=== PATIENT | male | born 1975 | race American Indian/Alaskan Native ===

== ENCOUNTER 2017-11-12 00:49 | Emergency (ER) | payer OTHER ==
[2017-11-12 01:03] VITALS: BP 125/80
--- NOTE | 2017-11-12 01:22 | XRay Report ---
FINAL REPORT EXAM: XR ANKLE 2V RT HISTORY: Right ankle pain COMPARISON: None available. FINDINGS: Two views of right ankle obtained. Ankle mortise is preserved. No acute fracture dislocation. Mild soft tissue swelling. Mild hypertrophic spurring along the subtalar joint space. IMPRESSION: No acute bony abnormality. Mild degenerative changes.
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
== END 2017-11-12 02:09 | disposition home or self-care (01) ==
LOC: ED 00:49
DX: M25.571 Pain in right ankle and joints of right foot (principal); G89.29 Other chronic pain; M79.674 Pain in right toe(s); F17.200 Nicotine dependence, unspecified, uncomplicated
CPT/HCPCS: 99283

== ENCOUNTER 2017-12-01 12:45 | Emergency (ER) | payer OTHER ==
[2017-12-01] MEDS ORDERED: MOTRIN PO ONE ×2 (15:15→15:39)
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
[2017-12-01 18:08] VITALS: BP 128/32
== END 2017-12-01 18:07 | disposition home or self-care (01) ==
LOC: ED 12:45
DX: S13.4XXA Sprain of ligaments of cervical spine, initial encounter (principal); V49.49XA Driver injured in collision with other motor vehicles in traffic accident, initial encounter; Y93.89 Activity, other specified; Y92.89 Other specified places as the place of occurrence of the external cause; Y99.8 Other external cause status
CPT/HCPCS: 71111; 72040; 99283

== ENCOUNTER 2017-12-18 22:09 | Emergency (ER) | payer OTHER ==
--- NOTE | 2017-12-18 23:38 | XRay Report ---
FINAL REPORT PROCEDURE: XR SPINE CERVICAL 2-3V TECHNIQUE: Cervical spine radiographs, AP, lateral, and open-mouth odontoid views. CPT 71899 HISTORY: neck pain COMPARISON: No prior studies are available for comparison. FINDINGS: Prevertebral soft tissues: Normal . Alignment: Normal . Vertebral body heights/Disk spaces: Normal . Fracture(s): None . Facets: Normal . Bone mineralization: Normal . IMPRESSION: Normal Examination
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
[2017-12-19] MEDS ORDERED: MOTRIN PO ONE (05:26)
[2017-12-19 06:53] VITALS: BP 128/76
== END 2017-12-19 07:21 | disposition home or self-care (01) ==
LOC: ED 22:09
DX: S16.1XXA Strain of muscle, fascia and tendon at neck level, initial encounter (principal); V89.2XXA Person injured in unspecified motor-vehicle accident, traffic, initial encounter; Y93.89 Activity, other specified; Y92.89 Other specified places as the place of occurrence of the external cause; Y99.8 Other external cause status
CPT/HCPCS: 72040; 99283

== ENCOUNTER 2019-01-26 17:54 | Emergency (ER) | payer OTHER ==
[2019-01-26] MEDS ORDERED: NACL 0.9% 1000 ML 1,000 ML IV ONE (18:04)
--- NOTE | 2019-01-26 18:06 | Emergency Department Report ---
Blank Doc - Documentation Documentation: C/O nauseated abd pain time 2 week. Drinks hard liquors, Fever. Have not check temp. This initial assessment diagnostic orders/clinical plan/treatment (s) is/Are subject change based on patient's health status, clinical progression and re- assessment by fellow clinical providers in the ED. Further treatment and work-up at subsequent clinical providers discretion. Patient/guardians urged not to elope from s their condition may be serious if not clinically assessed and manag ed. Inital order include:
[2019-01-26 18:08] VITALS: BP 140/90
[2019-01-26 19:00] LABS: Bilirubin,Urine NEG (Negative); Blood,Urine MOD (Negative); Color,Urine Amber (Yellow); Mucus,Urine 3+ /HPF
--- NOTE | 2019-01-26 22:31 | Emergency Department Report ---
ED N/V/D HPI - General Chief complaint: Nausea/Vomiting/Diarrhea Stated complaint: STOMACH VIRUS Time Seen by Provider: 01/26/19 18:02 Source: patient Mode of arrival: Ambulatory Limitations: No Limitations - History of Present Illness Initial comments: pt is a 43 y/o aam with hx GERD who presents for abd pain n/v/d x 1 month intermittently pt states he continues use ETOH and is 15 pack yr smoker, pt dernies fever or chills , pt states symptoms exacerbated by po intake symptom relieved by npo , there is associated heart burn and belching MD complaint: nausea, vomiting, diarrhea, abdominal pain Onset/Timin -: month(s) Description of Vomiting: food contents Description of Diarrhea: water Associated Abdominal Pain: Yes (01/09) Location: LUQ Radiation: other (epigastric ) Severity: moderate Pain Scale: 4 Quality: aching, other (burning ) Consistency: intermittent Improves with: rest Worsens with: eating Associated Symptoms: denies other symptoms - Related Data Previous Rx's Medication Instructions Recorded Last Taken Type Naproxen 500 mg PO BID PRN #30 tablet 11/12/17 Unknown Rx Cyclobenzaprine [Flexeril] 10 mg PO QHS PRN #7 tablet 12/01/17 Unknown Rx Cyclobenzaprine [Flexeril 10 MG 10 mg PO Q8H PRN 4 Days #12 tablet 12/19/17 Unknown Rx TAB] Ibuprofen [Motrin 600 MG tab] 600 mg PO Q8H PRN 5 Days #15 tablet 12/19/17 Unknown Rx Chlorhexidine Gluconate [Hibiclens] 10 ml TP BID #240 liquid 09/21/18 Unknown Rx cephALEXin [Keflex] 500 mg PO Q6HR #40 capsule 09/21/18 Unknown Rx Famotidine [Pepcid] 20 mg PO BID #60 tablet 01/26/19 Unknown Rx Naproxen 500 mg PO BID PRN #30 tablet 01/26/19 Unknown Rx Ondansetron [Zofran Odt] 4 mg PO Q8HR PRN #12 tab.rapdis 01/26/19 Unknown Rx Allergies Allergy/AdvReac Type Severity Reaction Status Date / Time egg Allergy Itching Verified 01/26/19 17:55 ED Review of Systems ROS: Stated complaint: STOMACH VIRUS Other details as noted in HPI Constitutional: denies: chills, fever Eyes: denies: eye pain, eye discharge, vision change ENT: denies: ear pain, throat pain Respiratory: denies: cough, shortness of breath, wheezing Cardiovascular: denies: chest pain, palpitations Endocrine: no symptoms reported Gastrointestinal: abdominal pain, nausea, vomiting, diarrhea. denies: constipation, hematemesis, melena, hematochezia Genitourinary: denies: urgency, dysuria Musculoskeletal: denies: back pain, joint swelling, arthralgia Skin: denies: rash, lesions Neurological: denies: headache, weakness, paresthesias Psychiatric: denies: anxiety, depression Hematological/Lymphatic: denies: easy bleeding, easy bruising ED Past Medical Hx - Past Medical History Hx Psychiatric Treatment: Yes (alcohol abuse) - Surgical History Past Surgical History?: No - Social History Smoking Status: Current Every Day Smoker Substance Use Type: Alcohol - Medications Home Medications: Home Medications Medication Instructions Recorded Confirmed Last Taken Type Naproxen 500 mg PO BID PRN #30 tablet 11/12/17 Unknown Rx Cyclobenzaprine [Flexeril] 10 mg PO QHS PRN #7 tablet 12/01/17 Unknown Rx Cyclobenzaprine [Flexeril 10 MG 10 mg PO Q8H PRN 4 Days #12 tablet 12/19/17 Unknown Rx TAB] Ibuprofen [Motrin 600 MG tab] 600 mg PO Q8H PRN 5 Days #15 tablet 12/19/17 Unknown Rx Chlorhexidine Gluconate [Hibiclens] 10 ml TP BID #240 liquid 09/21/18 Unknown Rx cephALEXin [Keflex] 500 mg PO Q6HR #40 capsule 09/21/18 Unknown Rx Famotidine [Pepcid] 20 mg PO BID #60 tablet 01/26/19 Unknown Rx Naproxen 500 mg PO BID PRN #30 tablet 01/26/19 Unknown Rx Ondansetron [Zofran Odt] 4 mg PO Q8HR PRN #12 tab.rapdis 01/26/19 Unknown Rx ED Physical Exam - General Limitations: No Limitations General appearance: alert, in no apparent distress - Head Head exam: Present: atraumatic, normocephalic - Eye Eye exam: Present: normal appearance, PERRL, EOMI Pupils: Present: normal accommodation - ENT ENT exam: Present: mucous membranes moist, TM's normal bilaterally, normal external ear exam - Expanded ENT Exam Expanded Throat exam: Positive: tonsillar erythema, other (uvula midline no stridor no exudate no lesions). Negative: tonsillomegaly, tonsillar exudate, R peritonsillar mass, L peritonsillar mass - Neck Neck exam: Present: normal inspection, full ROM. Absent: tenderness, meningismus, lymphadenopathy, thyromegaly - Respiratory Respiratory exam: Present: normal lung sounds bilaterally. Absent: respiratory distress, wheezes, stridor, chest wall tenderness - Cardiovascular Cardiovascular Exam: Present: regular rate, normal rhythm, normal heart sounds. Absent: systolic murmur, diastolic murmur, rubs, gallop - GI/Abdominal GI/Abdominal exam: Present: soft, tenderness (RUQ, LLQ ), normal bowel sounds. Absent: distended, guarding, rebound, rigid, bruit, hernia - Rectal Rectal exam: Present: deferred - Extremities Exam Extremities exam: Present: normal inspection - Back Exam Back exam: Present: normal inspection, full ROM. Absent: tenderness, CVA tender ness (R), CVA tenderness (L), muscle spasm, paraspinal tenderness, vertebral tenderness, rash noted - Neurological Exam Neurological exam: Present: alert, oriented X3, CN II-XII intact, normal gait, reflexes normal - Psychiatric Psychiatric exam: Present: normal affect, normal mood - Skin Skin exam: Present: warm, dry, intact, normal color. Absent: rash ED Course Vital Signs 01/26/19 18:03 Temperature 98.6 F Pulse Rate 92 H Respiratory 18 Rate Blood Pressure 140/90 O2 Sat by Pulse 98 Oximetry ED Medical Decision Making - Medical Decision Making pt refuses labs, CT abd and pelvis pt signs out ama this time pt has been given the opportunity to ask and I have answered all questions to patients satisfaction pt is currenty a/o x 3 ambulatory with steady gait , pt with nad at this time signs out Against Medical Advise, I have counseled pt no risk of signing out AMA including and or worsening condition pt verbalized understanding of same. pt condition is undetermined at this time Critical care attestation.: If time is entered above; I have spent that time in minutes in the direct care of this critically ill patient, excluding procedure time. ED Disposition Clinical Impression: Nausea vomiting and diarrhea Disposition: DC-07 LEFT AGAINST MED ADVICE Is pt being admited?: No Does the pt Need Aspirin: No Condition: Stable Instructions: Acute Nausea and Vomiting (ED), Gastroesophageal Reflux Disease (ED), Diet for Ulcers and Gastritis (ED) Prescriptions: Famotidine [Pepcid] 20 mg PO BID #60 tablet Naproxen 500 mg PO BID PRN #30 tablet PRN Reason: pain Ondansetron [Zofran Odt] 4 mg PO Q8HR PRN #12 tab.rapdis PRN Reason: nausea and vomiting Referrals: [facility] [Provider Group] - 3-5 Days Forms: Work/School Release Form(ED), AMA Form Time of Disposition: 22:44
== END 2019-01-26 22:35 | disposition left against medical advice (07) ==
LOC: ED 17:54
DX: R10.12 Left upper quadrant pain (principal); R19.7 Diarrhea, unspecified; R11.2 Nausea with vomiting, unspecified; F17.200 Nicotine dependence, unspecified, uncomplicated; F10.129 Alcohol abuse with intoxication, unspecified; Z91.012 Allergy to eggs
CPT/HCPCS: 81001; 99283

== ENCOUNTER 2019-02-06 22:18 | Emergency (ER) | payer OTHER ==
[2019-02-06 22:24] VITALS: BP 121/70
--- NOTE | 2019-02-06 22:27 | Emergency Department Report ---
Chief Complaint: Extremity Injury, Upper Stated Complaint: LEFT HAND PAIN Time Seen by Provider: 02/06/19 22:21 - HPI History of Present Illness: left pinky finger and left thumb slammed in the door 3 hours [employer] no abrasions or lacerations has not moved the pinky since the incident MSE screening note: Focused history and physical exam performed. Due to findings the following was ordered: xr left pinky/thumb ED Disposition for MSE Condition: Stable
--- NOTE | 2019-02-06 23:45 | XRay Report ---
PROCEDURE: XR FINGER(S) 2+V LT TECHNIQUE: 5 radiographs of the first and second left digit obtained. HISTORY: left pinky/left thumb slammed into the door COMPARISONS: None FINDINGS: No acute fracture or dislocation. IMPRESSION: No acute fracture or dislocation.. This document is electronically signed by Arian Baac MD., February 06 2019 11:42:58 PM ET
[2019-02-07] MEDS ORDERED: ULTRAM PO ONE (00:01)
--- NOTE | 2019-02-07 00:13 | Emergency Department Report ---
ED Upper Extremity Inj HPI - General Chief Complaint: Extremity Injury, Upper Stated Complaint: LEFT HAND PAIN Time Seen by Provider: 02/06/19 22:21 Source: patient Mode of arrival: Ambulatory Limitations: No Limitations - History of Present Illness Initial Comments: Patient is a 43-year-old -[place] male who presents for left hand pain states he slammed his left hand accidentally on a car door pain is 5/10 and aching throbbing pain is relieved by nothing pain is exacerbated by movement and palpation there is no swelling no deformity no bleeding no laceration noted Complaint: Injury to:: left Onset/Timin -: days(s) Other Extremity Injury: Fingers: Left, Hand: Left, Right, Wrist: Left, Right Other Injuries: none Place: home Severity scale (0 -10): 5 Improves With: none Worsens With: movement of extremity Context: direct blow Associated Symptoms: denies: weakness, numbness, neck pain, suspects foreign body, nausea/vomiting, heard/felt popping sensat - Related Data Previous Rx's Medication Instructions Recorded Last Taken Type Naproxen 500 mg PO BID PRN #30 tablet 11/12/17 Unknown Rx Cyclobenzaprine [Flexeril] 10 mg PO QHS PRN #7 tablet 12/01/17 Unknown Rx Cyclobenzaprine [Flexeril 10 MG 10 mg PO Q8H PRN 4 Days #12 tablet 12/19/17 Unknown Rx TAB] Ibuprofen [Motrin 600 MG tab] 600 mg PO Q8H PRN 5 Days #15 tablet 12/19/17 Unknown Rx Chlorhexidine Gluconate [Hibiclens] 10 ml TP BID #240 liquid 09/21/18 Unknown Rx cephALEXin [Keflex] 500 mg PO Q6HR #40 capsule 09/21/18 Unknown Rx Famotidine [Pepcid] 20 mg PO BID #60 tablet 01/26/19 Unknown Rx Naproxen 500 mg PO BID PRN #30 tablet 01/26/19 Unknown Rx Ondansetron [Zofran Odt] 4 mg PO Q8HR PRN #12 tab.rapdis 01/26/19 Unknown Rx Naproxen 500 mg PO BID PRN #30 tablet 02/07/19 Unknown Rx Allergies Allergy/AdvReac Type Severity Reaction Status Date / Time egg Allergy Itching Verified 01/26/19 17:55 ED Review of Systems ROS: Stated complaint: LEFT HAND PAIN Other details as noted in HPI Constitutional: denies: chills, fever Eyes: denies: eye pain, eye discharge, vision change ENT: denies: ear pain, throat pain Respiratory: denies: cough, shortness of breath, wheezing Cardiovascular: denies: chest pain, palpitations Endocrine: no symptoms reported Gastrointestinal: denies: abdominal pain, nausea, diarrhea Genitourinary: denies: urgency, dysuria Musculoskeletal: myalgia, other (hand pain ) Skin: denies: rash, lesions Neurological: denies: headache, weakness, paresthesias Psychiatric: denies: anxiety, depression Hematological/Lymphatic: denies: easy bleeding, easy bruising ED Past Medical Hx - Past Medical History Hx Psychiatric Treatment: Yes (alcohol abuse) - Surgical History Past Surgical History?: No - Social History Smoking Status: Current Every Day Smoker Substance Use Type: None - Medications Home Medications: Home Medications Medication Instructions Recorded Confirmed Last Taken Type Naproxen 500 mg PO BID PRN #30 tablet 11/12/17 Unknown Rx Cyclobenzaprine [Flexeril] 10 mg PO QHS PRN #7 tablet 12/01/17 Unknown Rx Cyclobenzaprine [Flexeril 10 MG 10 mg PO Q8H PRN 4 Days #12 tablet 12/19/17 Unknown Rx TAB] Ibuprofen [Motrin 600 MG tab] 600 mg PO Q8H PRN 5 Days #15 tablet 12/19/17 Unknown Rx Chlorhexidine Gluconate [Hibiclens] 10 ml TP BID #240 liquid 09/21/18 Unknown Rx cephALEXin [Keflex] 500 mg PO Q6HR #40 capsule 09/21/18 Unknown Rx Famotidine [Pepcid] 20 mg PO BID #60 tablet 01/26/19 Unknown Rx Naproxen 500 mg PO BID PRN #30 tablet 01/26/19 Unknown Rx Ondansetron [Zofran Odt] 4 mg PO Q8HR PRN #12 tab.rapdis 01/26/19 Unknown Rx Naproxen 500 mg PO BID PRN #30 tablet 02/07/19 Unknown Rx ED Physical Exam - General Limitations: No Limitations General appearance: alert, in no apparent distress - Head Head exam: Present: atraumatic, normocephalic - Eye Eye exam: Present: normal appearance, PERRL Pupils: Present: normal accommodation - ENT ENT exam: Present: mucous membranes moist - Neck Neck exam: Present: normal inspection, full ROM. Absent: lymphadenopathy - Respiratory Respiratory exam: Present: normal lung sounds bilaterally, chest wall tenderness. Absent: respiratory distress, rhonchi - Cardiovascular Cardiovascular Exam: Present: regular rate, normal rhythm, normal heart sounds. Absent: systolic murmur, diastolic murmur, rubs, gallop - GI/Abdominal GI/Abdominal exam: Present: soft, normal bowel sounds. Absent: distended, tenderness, guarding, rebound, bruit, hernia - Rectal Rectal exam: Present: deferred - Extremities Exam Extremities exam: Present: normal inspection, tenderness, normal capillary refill. Absent: pedal edema, joint swelling, calf tenderness - Expanded Upper Extremity Exam Left Hand Wrist exam: Present: full ROM, tenderness (1st and 5th digit pain no swelling no deformity no laceration ). Absent: swelling, abrasion, laceration, ecchymosis, deformity, crepidus, dislocation, erythema, amputation, nail avulsion, subungual hematoma Neuro motor exam: Present: wrist extension intact, thumb opposition intact, thumb IP flexion intact, thumb adduction intact, fingers 2-5 abduction intact Neurosensory exam: Present: 2-point discrimination, radial nerve intact Vascular: Present: normal capillary refill, radial pulse, brachial pulse, ulnar pulse. Absent: vascular compromise, pulse deficit radial art, pulse deficit ulnar art, pulse deficit brachial art - Back Exam Back exam: Present: normal inspection, full ROM. Absent: tenderness, CVA tenderness (R), CVA tenderness (L), muscle spasm, paraspinal tenderness, vertebral tenderness, rash noted - Neurological Exam Neurological exam: Present: alert, CN II-XII intact, normal gait, reflexes normal. Absent: motor sensory deficit - Psychiatric Psychiatric exam: Present: normal affect, normal mood - Skin Skin exam: Present: warm, dry, intact, normal color. Absent: rash ED Course Vital Signs 02/06/19 22:22 Temperature 98.3 F Pulse Rate 69 Respiratory 18 Rate Blood Pressure 121/70 O2 Sat by Pulse 100 Oximetry ED Medical Decision Making - Radiology Data Radiology results: report reviewed, image reviewed normal hand xray no fracture no soft tissue abnormality - Medical Decision Making X-rays are normal fashion or soft tissue abnormalities were treated finger sprains with NSAIDs patient will follow up with PCP in 2-3 days patient a referral to [facility] patient verbalized agreement and understanding of the same pt for dc to home in stable condtion at this time Critical care attestation.: If time is entered above; I have spent that time in minutes in the direct care of this critically ill patient, excluding procedure time. ED Disposition Clinical Impression: Nausea vomiting and diarrhea Finger sprain Qualifiers: Encounter type: initial encounter Finger: little finger Sprain of finger site: interphalangeal joint Laterality: left Qualified Code(s): S63.637A - Sprain of interphalangeal joint of left little finger, initial encounter Disposition: DC-01 TO HOME OR SELFCARE Is pt being admited?: No Does the pt Need Aspirin: No Condition: Stable Instructions: Finger Sprain (ED) Prescriptions: Naproxen 500 mg PO BID PRN #30 tablet PRN Reason: pain Referrals: PRIMARY CARE, [Primary Care Provider] - 3-5 Days Forms: Work/School Release Form(ED) Time of Disposition: 00:20
== END 2019-02-07 00:56 | disposition home or self-care (01) ==
LOC: ED 22:18
DX: S63.637A Sprain of interphalangeal joint of left little finger, initial encounter (principal); R11.2 Nausea with vomiting, unspecified; R19.7 Diarrhea, unspecified; F17.200 Nicotine dependence, unspecified, uncomplicated; Z91.012 Allergy to eggs; W23.0XXA Caught, crushed, jammed, or pinched between moving objects, initial encounter; Y93.89 Activity, other specified; Y92.89 Other specified places as the place of occurrence of the external cause; Y99.8 Other external cause status

== ENCOUNTER 2019-08-29 06:00 | Emergency (ER) | payer SELFPAY ==
[2019-08-29] MEDS ORDERED: diphenhydrAMINE 25 MG CAP PO ONE (08:21)
--- NOTE | 2019-08-29 09:00 | Emergency Department Report ---
ED General Adult HPI - General Chief complaint: Medical Clearance Time Seen by Provider: 08/29/19 08:21 - History of Present Illness Initial comments: Patient is a 43-year-old male with no prior medical history presents to ED complaining of inability tosleep for the past couple of months. Patient states that he is taking [id number] at [facility] and Tylenol PM without any relief. Patient states she is also taking [id number]-[id number] no relief. Patient states he reports different hours of the day. Patient denies fevers/chills/nausea vomiting/abdominal pain/chest pain/dizziness/shortness of breath/loss of consciousness or any recent trauma or injuries. - Related Data Previous Rx's Medication Instructions Recorded Last Taken Type Naproxen 500 mg PO BID PRN #30 tablet 11/12/17 Unknown Rx Cyclobenzaprine [Flexeril] 10 mg PO QHS PRN #7 tablet 12/01/17 Unknown Rx Cyclobenzaprine [Flexeril 10 MG 10 mg PO Q8H PRN 4 Days #12 tablet 12/19/17 Unknown Rx TAB] Ibuprofen [Motrin 600 MG tab] 600 mg PO Q8H PRN 5 Days #15 tablet 12/19/17 Unknown Rx Chlorhexidine Gluconate [Hibiclens] 10 ml TP BID #240 liquid 09/21/18 Unknown Rx cephALEXin [Keflex] 500 mg PO Q6HR #40 capsule 09/21/18 Unknown Rx Famotidine [Pepcid] 20 mg PO BID #60 tablet 01/26/19 Unknown Rx Naproxen 500 mg PO BID PRN #30 tablet 01/26/19 Unknown Rx Ondansetron [Zofran Odt] 4 mg PO Q8HR PRN #12 tab.rapdis 01/26/19 Unknown Rx Naproxen 500 mg PO BID PRN #30 tablet 02/07/19 Unknown Rx diphenhydrAMINE [Benadryl CAP] 50 mg PO QHS #20 capsule 08/29/19 Unknown Rx Allergies Allergy/AdvReac Type Severity Reaction Status Date / Time egg Allergy Itching Verified 01/26/19 17:55 ED Review of Systems ROS: Stated complaint: Other details as noted in HPI Comment: All other systems reviewed and negative ED Past Medical Hx - Past Medical History Hx Psychiatric Treatment: Yes (alcohol abuse) - Social History Smoking Status: Current Every Day Smoker Substance Use Type: None - Medications Home Medications: Home Medications Medication Instructions Recorded Confirmed Last Taken Type Naproxen 500 mg PO BID PRN #30 tablet 11/12/17 Unknown Rx Cyclobenzaprine [Flexeril] 10 mg PO QHS PRN #7 tablet 12/01/17 Unknown Rx Cyclobenzaprine [Flexeril 10 MG 10 mg PO Q8H PRN 4 Days #12 tablet 12/19/17 Unknown Rx TAB] Ibuprofen [Motrin 600 MG tab] 600 mg PO Q8H PRN 5 Days #15 tablet 12/19/17 Unknown Rx Chlorhexidine Gluconate [Hibiclens] 10 ml TP BID #240 liquid 09/21/18 Unknown Rx cephALEXin [Keflex] 500 mg PO Q6HR #40 capsule 09/21/18 Unknown Rx Famotidine [Pepcid] 20 mg PO BID #60 tablet 01/26/19 Unknown Rx Naproxen 500 mg PO BID PRN #30 tablet 01/26/19 Unknown Rx Ondansetron [Zofran Odt] 4 mg PO Q8HR PRN #12 tab.rapdis 01/26/19 Unknown Rx Naproxen 500 mg PO BID PRN #30 tablet 02/07/19 Unknown Rx diphenhydrAMINE [Benadryl CAP] 50 mg PO QHS #20 capsule 08/29/19 Unknown Rx ED Physical Exam - General General appearance: alert, in no apparent distress - Head Head exam: Present: atraumatic, normocephalic - Eye Eye exam: Present: normal appearance - ENT ENT exam: Present: mucous membranes moist - Neck Neck exam: Present: normal inspection - Respiratory Respiratory exam: Present: normal lung sounds bilaterally. Absent: respiratory distress - Cardiovascular Cardiovascular Exam: Present: regular rate, normal rhythm. Absent: systolic murmur, diastolic murmur, rubs, gallop - GI/Abdominal GI/Abdominal exam: Present: soft, normal bowel sounds - Rectal Rectal exam: Present: deferred - Extremities Exam Extremities exam: Present: normal inspection - Back Exam Back exam: Present: normal inspection - Neurological Exam Neurological exam: Present: alert, oriented X3 - Psychiatric Psychiatric exam: Present: normal affect, normal mood - Skin Skin exam: Present: warm, dry, intact, normal color. Absent: rash ED Medical Decision Making - Medical Decision Making 43-year-old male presents with insomnia. Discussed with patient her need to follow up with the psychiatrist or his primary care doctor for further management. Discussed at this time will give Benadryl as needed for sleep and to use every night. he received Benadryl in the ED. Vital signs normal patient is in no acute distress. Vital signs blood pressure 110/77. Pulse was 86 bpm. Respiratory: 18 per minute pulse ox is 99% on room air oxygen temperature 97.5 Critical care attestation.: If time is entered above; I have spent that time in minutes in the direct care of this critically ill patient, excluding procedure time. ED Disposition Clinical Impression: Acute insomnia Disposition: - TO HOME OR SELFCARE Is pt being admited?: No Does the pt Need Aspirin: No Condition: Stable Instructions: Insomnia (ED) Additional Instructions: Make sure to follow up with the primary care physician as discussed. Take all your medications as you've been prescribed. If you have any worsening symptoms or develop new symptoms please return to ED immediately. Prescriptions: diphenhydrAMINE [Benadryl CAP] 50 mg PO QHS #20 capsule Referrals: PRIMARY CARE, [Primary Care Provider] - 3-5 Days [facility] [Outside] - 3-5 Days [facility] [Outside] - 3-5 Days [facility] [Outside] - 3-5 Days Forms: Accompanied Note, Work/School Release Form(ED) Time of Disposition: 09:09
== END 2019-08-29 09:33 | disposition home or self-care (01) ==
LOC: ED 06:00
DX: G47.00 Insomnia, unspecified (principal); F17.200 Nicotine dependence, unspecified, uncomplicated; F10.120 Alcohol abuse with intoxication, uncomplicated; Z79.899 Other long term (current) drug therapy; Z91.012 Allergy to eggs
CPT/HCPCS: 99282

== ENCOUNTER 2019-08-31 22:47 | Emergency (ER) | payer SELFPAY ==
[2019-08-31 22:54] VITALS: BP 114/59
--- NOTE | 2019-09-01 00:33 | Emergency Department Report ---
ED General Adult HPI - General Chief complaint: Anxiety Stated complaint: UNABLE TO SLEEP Time Seen by Provider: 08/31/19 23:49 Source: patient Mode of arrival: Ambulatory Limitations: No Limitations - History of Present Illness Initial comments: The patient presents to the emergency department with a chief complaint of insomnia for the last couple of months. Patient states that he will likely referral to sleep specialist. Patient states his insomnia started with some life stresses a couple months ago. Patient denies any homicidal suicidal ideati on. Patient states she is no longer getting relief with [id number] medications for sleep Consistency: constant Improves with: none Worsens with: none Associated Symptoms: denies other symptoms Treatments Prior to Arrival: none - Related Data Previous Rx's Medication Instructions Recorded Last Taken Type Naproxen 500 mg PO BID PRN #30 tablet 11/12/17 Unknown Rx Cyclobenzaprine [Flexeril] 10 mg PO QHS PRN #7 tablet 12/01/17 Unknown Rx Cyclobenzaprine [Flexeril 10 MG 10 mg PO Q8H PRN 4 Days #12 tablet 12/19/17 Unknown Rx TAB] Ibuprofen [Motrin 600 MG tab] 600 mg PO Q8H PRN 5 Days #15 tablet 12/19/17 Unk nown Rx Chlorhexidine Gluconate [Hibiclens] 10 ml TP BID #240 liquid 09/21/18 Unknown Rx cephALEXin [Keflex] 500 mg PO Q6HR #40 capsule 09/21/18 Unknown Rx Famotidine [Pepcid] 20 mg PO BID #60 tablet 01/26/19 Unknown Rx Naproxen 500 mg PO BID PRN #30 tablet 01/26/19 Unknown Rx Ondansetron [Zofran Odt] 4 mg PO Q8HR PRN #12 tab.rapdis 01/26/19 Unknown Rx Naproxen 500 mg PO BID PRN #30 tablet 02/07/19 Unknown Rx diphenhydrAMINE [Benadryl CAP] 50 mg PO QHS #20 capsule 08/29/19 Unknown Rx hydrOXYzine PAMOATE [Vistaril] 25 mg PO QHS PRN #10 capsule 09/01/19 Unknown Rx Allergies Allergy/AdvReac Type Severity Reaction Status Date / Time egg Allergy Itching Verified 01/26/19 17:55 ED Review of Systems ROS: Stated complaint: UNABLE TO SLEEP Other details as noted in HPI Comment: All other systems reviewed and negative Constitutional: denies: chills, fever Eyes: denies: eye pain, eye discharge, vision change ENT: denies: ear pain, throat pain Respiratory: denies: cough, shortness of breath, wheezing Cardiovascular: denies: chest pain, palpitations Endocrine: no symptoms reported Gastrointestinal: denies: abdominal pain, nausea, diarrhea Genitourinary: denies: urgency, dysuria Musculoskeletal: denies: back pain, joint swelling, arthralgia Skin: denies: rash, lesions Neurological: denies: headache, weakness, paresthesias Psychiatric: denies: anxiety, depression Hematological/Lymphatic: denies: easy bleeding, easy bruising ED Past Medical Hx - Past Medical History Previous Medical History?: Yes Hx Psychiatric Treatment: Yes (alcohol abuse/08/31/2019- pt denies) - Surgical History Past Surgical History?: No - Social History Smoking Status: Never Smoker Substance Use Type: None - Medications Home Medications: Home Medications Medication Instructions Recorded Confirmed Last Taken Type Naproxen 500 mg PO BID PRN #30 tablet 11/12/17 Unknown Rx Cyclobenzaprine [Flexeril] 10 mg PO QHS PRN #7 tablet 12/01/17 Unknown Rx Cyclobenzaprine [Flexeril 10 MG 10 mg PO Q8H PRN 4 Days #12 tablet 12/19/17 Unknown Rx TAB] Ibuprofen [Motrin 600 MG tab] 600 mg PO Q8H PRN 5 Days #15 tablet 12/19/17 Unknown Rx Chlorhexidine Gluconate [Hibiclens] 10 ml TP BID #240 liquid 09/21/18 Unknown Rx cephALEXin [Keflex] 500 mg PO Q6HR #40 capsule 09/21/18 Unknown Rx Famotidine [Pepcid] 20 mg PO BID #60 tablet 01/26/19 Unknown Rx Naproxen 500 mg PO BID PRN #30 tablet 01/26/19 Unknown Rx Ondansetron [Zofran Odt] 4 mg PO Q8HR PRN #12 tab.rapdis 01/26/19 Unknown Rx Naproxen 500 mg PO BID PRN #30 tablet 02/07/19 Unknown Rx diphenhydrAMINE [Benadryl CAP] 50 mg PO QHS #20 capsule 08/29/19 Unknown Rx hydrOXYzine PAMOATE [Vistaril] 25 mg PO QHS PRN #10 capsule 09/01/19 Unknown Rx ED Physical Exam - General Limitations: No Limitations General appearance: alert, in no apparent distress - Head Head exam: Present: atraumatic, normocephalic - Eye Eye exam: Present: normal appearance, PERRL, EOMI - ENT ENT exam: Present: mucous membranes moist - Neck Neck exam: Present: normal inspection - Respiratory Respiratory exam: Present: normal lung sounds bilaterally. Absent: respiratory distress - Cardiovascular Cardiovascular Exam: Present: regular rate, normal rhythm. Absent: systolic murmur, diastolic murmur, rubs, gallop - GI/Abdominal GI/Abdominal exam: Present: soft, normal bowel sounds. Absent: distended, tenderness - Rectal Rectal exam: Present: deferred - Extremities Exam Extremities exam: Present: normal inspection - Back Exam Back exam: Present: normal inspection - Neurological Exam Neurological exam: Present: alert, oriented X3, CN II-XII intact. Absent: motor sensory deficit - Psychiatric Psychiatric exam: Present: normal affect, normal mood - Skin Skin exam: Present: warm, dry, intact, normal color. Absent: rash ED Course Vital Signs 08/31/19 22:52 Temperature 98.3 F Pulse Rate 77 Respiratory 18 Rate Blood Pressure 114/59 O2 Sat by Pulse 99 Oximetry ED Medical Decision Making - Medical Decision Making Discussed plan of care with patient Critical care attestation.: If time is entered above; I have spent that time in minutes in the direct care of this critically ill patient, excluding procedure time. ED Disposition Clinical Impression: Insomnia Disposition: DC-01 TO HOME OR SELFCARE Is pt being admited?: No Does the pt Need Aspirin: No Instructions: Insomnia (ED) Additional Instructions: return if worse Prescriptions: hydrOXYzine PAMOATE [Vistaril] 25 mg PO QHS PRN #10 capsule PRN Reason: Insomnia Referrals: THUY KUMAR JR, MD [Primary Care Provider] - 3-5 Days [facility] [Provider Group] - 3-5 Days [facility] [Provider Group] - 3-5 Days [facility] [Outside] - 3-5 Days [facility] [Provider Group] - 3-5 Days [facility] [Provider Group] - 3-5 Days JEANNETTE NUNEZ MD [Staff Physician] - 3-5 Days DIANA CHAPA MD [Staff Physician] - 3-5 Days HERBERTH JUAREZ MD [Staff Physician] - 3-5 Days KARON CORRAL MD [Staff Physician] - 3-5 Days MIGUEL ORANTES MD [Staff Physician] - 3-5 Days Forms: Work/School Release Form(ED) Time of Disposition: 00:30
== END 2019-09-01 00:47 | disposition home or self-care (01) ==
LOC: ED 22:47
DX: G47.00 Insomnia, unspecified (principal); Z79.899 Other long term (current) drug therapy; Z91.012 Allergy to eggs

== ENCOUNTER 2021-05-30 20:32 | Emergency (ER) | payer OTHER, SELFPAY ==
[2021-05-31] MEDS ORDERED: traMADol 50 MG TAB PO ONE (02:12)
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
[2021-05-31 05:18] VITALS: BP 112/65
== END 2021-05-31 03:30 | disposition home or self-care (01) ==
LOC: ED 20:32
DX: S46.912A Strain of unspecified muscle, fascia and tendon at shoulder and upper arm level, left arm, initial encounter (principal); Z91.012 Allergy to eggs; Z79.899 Other long term (current) drug therapy; V49.49XA Driver injured in collision with other motor vehicles in traffic accident, initial encounter; Y92.410 Unspecified street and highway as the place of occurrence of the external cause; Y93.89 Activity, other specified; Y99.8 Other external cause status

== ENCOUNTER 2021-05-31 05:27 | Emergency (ER) | payer SELFPAY ==
[2021-05-31 06:31] VITALS: BP 137/98
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
== END 2021-05-31 07:15 | disposition home or self-care (01) ==
LOC: ED 05:27
DX: S49.92XA Unspecified injury of left shoulder and upper arm, initial encounter (principal); Z91.012 Allergy to eggs; V49.49XA Driver injured in collision with other motor vehicles in traffic accident, initial encounter; Y93.89 Activity, other specified; Y92.410 Unspecified street and highway as the place of occurrence of the external cause; Y99.8 Other external cause status
CPT/HCPCS: 99281

== ENCOUNTER 2021-06-25 10:22 | Emergency (ER) | payer SELFPAY ==
[2021-06-25 11:41] VITALS: BP 138/110
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
== END 2021-06-25 12:29 | disposition home or self-care (01) ==
LOC: ED 10:22
DX: M25.512 Pain in left shoulder (principal); Z91.012 Allergy to eggs
CPT/HCPCS: 99281